=== PATIENT | male | born 1975 | race Caucasian/White ===

== ENCOUNTER 2018-05-04 00:07 | Emergency (ER) | payer SELFPAY ==
--- OUTSIDE RECORDS SUMMARY | 2018-05-04 00:10 | XMS REPORT ---
:1975 [facility] [address] [place] [address] [address] Care Team Providers Name Role Phone Unavailable Unavailable Unavailable Problems This patient has no known problems. Allergies, Adverse Reactions, Alerts This patient has no known allergies or adverse reactions. Medications This patient has no known medications. Encounters Start End Encounter Admission Attending Care Care Encounter Date/Time Date/Time Type Type Clinicians Facility Department ID 2018-01-27 2018-01-27 Outpatient [facility] [id number] 00:00:00 00:00:00 2017-08-12 2017-08-12 Outpatient [facility] [id number] 00:00:00 00:00:00
--- OUTSIDE RECORDS SUMMARY | 2018-05-04 00:10 | XMS REPORT | Clinical Summary ---
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 [facility] DEPARTMENT OF PATHOLOGY AND GENOMIC MEDICINE Creatinine 0.8 0.7 - 1.2 mg/dL [facility] DEPARTMENT OF PATHOLOGY AND GENOMIC MEDICINE Glucose 108 (H) 65 - 99 mg/dL [facility] DEPARTMENT OF PATHOLOGY AND GENOMIC MEDICINE Calcium 8.8 8.3 - 10.2 mg/dL [facility] DEPARTMENT OF PATHOLOGY AND GENOMIC [facility] Specimen Plasma specimen Performing Organization Address City/[facility]/Zipcode Phone Number [facility] DEPARTMENT OF PATHOLOGY AND [id number] [place] [address] [place] [address] [facility] Lactic acid level (07/09/2017 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 For more information, please contact:Ze [id number] [place] [address]
[2018-05-04 01:15] LABS: Absolute Lymphocytes (CBC) 2.2 K/uL (0.7-4.9); Absolute Monocytes 0.6 K/uL (0.1-1.3); Absolute Neutrophil 3.6 K/uL (1.8-8.0); Eosinophils % 5.9 % (0-4.4); Hematocrit 38.3 % (39.6-49.0); Lymphocytes % 31.6 % (15.3-44.8); MPV 8.6 fL (7.6-11.3); Monocytes % 9.3 % (3.3-12.3); RBC Red Blood Cell Count 4.73 M/uL (4.33-5.43)
[2018-05-04 01:28] LABS: BUN Blood Urea Nitrogen 18 mg/dL (7-18); Bicarbonate 28 mmol/L (21-32); Glucose Level 134 mg/dL (74-106); Potassium 3.6 mmol/L (3.5-5.1); Sodium Level 142 mmol/L (136-145)
--- NOTE | 2018-05-04 04:23 | ER ---
Nurse's Notes [facility] Name: Greer Field Age: 42 yrs Sex: Male : 1975 Arrival Date: 05/04/2018 Time: 00:09 Bed 13 Private MD: Diagnosis: Umbilical hernia Presentation: 05/04 00:20 Presenting complaint: Patient states: umbilical pain, swelling and redness since cc3 yesterday afternoon secondary to fall from an 8 feet ladder then hit his umbilical area to a hard object; patient has history of umbilical hernia as well. Transition of care: patient was not received from another setting of care. Onset of symptoms was May 03, 2018. Risk Assessment: Do you want to hurt yourself or someone else? Patient reports no desire to harm self or others. Initial Sepsis Screen: Does the patient meet any 2 criteria? No. Patient's initial sepsis screen is negative. Does the patient have a suspected source of infection? No. Patient's initial sepsis screen is negative. Care prior to arrival: None. 00:20 Method Of Arrival: Wheelchair cc3 00:20 Acuity: IVÁN 3 cc3 Triage Assessment: 00:20 General: Appears in no apparent distress. uncomfortable, Behavior is calm, cooperative, cc3 appropriate for age. Pain: Complains of pain in umbilicus Pain currently is 7 out of 10 on a pain scale. Quality of pain is described as aching. EENT: No signs and/or symptoms were reported regarding the EENT system. Neuro: Level of Consciousness is awake, alert, obeys commands, Oriented to person, place, time, situation, Appropriate for age. Cardiovascular: Denies chest pain. Respiratory: Airway is patent Respiratory effort is even, unlabored, Respiratory pattern is regular, symmetrical. GI: umbilical hernia area redness. : No signs and/or symptoms were reported regarding the genitourinary system. Derm: redness and swelling on the umbilical hernia area. Musculoskeletal: Circulation, motion, and sensation intact. Range of motion: limited in bilateral lower extremities. Historical: - Allergies: 00:20 No Known Allergies; cc3 - Home Meds: 00:20 None [Active]; cc3 - PMHx: 00:20 CHF; Hypertension; LYMPH EDEMA; tinnitis; Umbilical hernia; lymphedema; cc3 - PSHx: 00:20 left knee replacement; cc3 - Immunization history:: Adult Immunizations not up to date. - Social history:: Smoking status: Patient/guardian denies using tobacco, the patient reports quitting approximately 4 years ago. - Ebola Screening: : No symptoms or risks identified at this time. Screenin:20 Abuse screen: Denies threats or abuse. Denies injuries from another. Nutritional cc3 screening: No deficits noted. Tuberculosis screening: No symptoms or risk factors identified. Fall Risk Ambulatory Aid- None/Bed Rest/Nurse Assist (0 pts). Gait- Normal/Bed Rest/Wheelchair (0 pts) Mental Status- Oriented to own ability (0 pts). Assessment: 00:20 General: see triage assessment. cc3 01:13 Reassessment: Patient appears in no apparent distress at this time. Patient and/or cc3 family updated on plan of care and expected duration. Pain level reassessed. Patient is alert, oriented x 3, equal unlabored respirations, skin warm/dry/pink. Patient comfortably sleeping, kept undisturbed. 02:15 Reassessment: Patient appears in no apparent distress at this time. Patient and/or cc3 family updated on plan of care and expected duration. Pain level reassessed. Patient is alert, oriented x 3, equal unlabored respirations, skin warm/dry/pink. 03:42 Reassessment: Patient appears in no apparent distress at this time. Patient and/or cc3 family updated on plan of care and expected duration. Pain level reassessed. Patient is alert, oriented x 3, equal unlabored respirations, skin warm/dry/pink. 04:12 Reassessment: Patient appears in no apparent distress at this time. Patient and/or cc3 family updated on plan of care and expected duration. Pain level reassessed. Patient is alert, oriented x 3, equal unlabored respirations, skin warm/dry/pink. 04:30 Reassessment: Dr. Rosenthal ordered patient for discharge home but patient and his cc3 girlfriend are not anymore in the patient's room. automotive refinish technicianluli Mueller and supervisor personnel clerks in the registration named Hyun said they saw the patient left. Called the provided mobile number of the patient's girlfriend named Karly Phillips ([phone]) and she confirmed that they left without informing and got home already and that the patient removed his IV cannula when they got home, charge nurse Mely informed. Vital Signs: 00:20 BP 165 / 92; Pulse 96; Resp 20 S; Temp 98.9(O); Pulse Ox 99% on R/A; Weight 147.42 kg cc3 (R); Height 5 ft. 11 in. (180.34 cm) (R); Pain 7/10; 01:14 BP 159 / 86; Pulse 92; Resp 18 S; Pulse Ox 98% on R/A; cc3 02:14 BP 187 / 81; Pulse 89; Resp 18 S; Pulse Ox 100% on R/A; cc3 03:42 BP 167 / 94; Pulse 97; Resp 19 S; Pulse Ox 97% on R/A; cc3 04:00 BP 146 / 97; Pulse 96; Resp 18 S; Pulse Ox 97% on R/A; cc3 00:20 Body Mass Index 45.33 (147.42 kg, 180.34 cm) cc3 ED Course: 00:09 Patient arrived in ED. am2 00:13 Lo Prince is Primary Nurse. cc3 00:20 Arm band placed on right wrist. cc3 00:20 Patient has correct armband on for positive identification. Bed in low position. Call cc3 light in reach. front desk monitor on. Pulse ox on. NIBP on. 00:25 Eusebio Rosenthal MD is Attending Physician. gs 00:39 Triage completed. cc3 01:04 Initial lab(s) drawn, by nh, sent to lab. gm 01:07 Inserted saline lock: 20 gauge in right antecubital area, using aseptic technique. Blood collected. 02:08 CT Abd/Pelvis - W/Contrast In Process Unspecified. EDMS 02:[address] via stretcher. kw1 02:46 CT Abd/Pelvis - W/Contrast In Process Unspecified. EDMS 02:48 CT completed. Couldn't keep patient awake during exam. Patient moved back from CT. kw1 04:22 Kevin Grewal MD is Referral Physician. gs 04:30 No provider procedures requiring assistance completed. IV discontinued. cc3 Administered Medications: No medications were administered Outcome: 04:23 Discharge ordered by . gs 04:30 Discharged to home ambulatory, with family, patient left without signing discharge cc3 papers 04:30 Condition: stable 04:30 Discharge instructions given to patient, family, Instructed on discharge instructions, follow up and referral plans. Demonstrated understanding of instructions, follow-up care. 04:56 Patient left the ED. cc3 Signatures: Dispatcher [employer] EDMS Hyun Vinson am2 Eusebio Rosenthal MD MD Genny Garrison Lo Prince cc3 Malena Hughes gm Corrections: (The following items were deleted from the chart) 06:03 04:30 Reassessment: Dr. Rosenthal ordered patient for discharge home but patient and his cc3 girlfriend are not anymore in the patient's room. automotive refinish technician Myromero and supervisor personnel clerks in the registration named Hyun said they saw the patient left. Called the provided mobile number of the patient's girlfriend named Karly Phillips and she confirmed that they left and got home already and that the patient removed his IV cannula when they got home, charge nurse Mely informed. cc3
--- NOTE | 2018-05-04 04:23 | EDPHYS ---
Physician Documentation [facility] Name: Greer Field Age: 42 yrs Sex: Male : 1975 Arrival Date: 05/04/2018 Time: 00:09 Bed 13 Private MD: ED Physician Eusebio Rosenthal HPI: 05/04 04:31 This 42 yrs old Male presents to ER via Wheelchair with complaints of hernia gs problem. 04:31 The patient presents with abdominal pain in the lower abdomen. Onset: The gs symptoms/episode began/occurred yesterday. Associated signs and symptoms: Pertinent positives: nausea, Pertinent negatives: chest pain, diarrhea. The symptoms are described as crampy. Modifying factors: The symptoms are alleviated by nothing, the symptoms are aggravated by nothing. Severity of pain: At its worst the pain was moderate in the emergency department the pain is unchanged. The patient has experienced similar episodes in the past, chronically. fell on metal cart hit abdomen and where hernia is. Historical: - Allergies: 00:20 No Known Allergies; cc3 - Home Meds: 00:20 None [Active]; cc3 - PMHx: 00:20 CHF; Hypertension; LYMPH EDEMA; tinnitis; Umbilical hernia; lymphedema; cc3 - PSHx: 00:20 left knee replacement; cc3 - Immunization history:: Adult Immunizations not up to date. - Social history:: Smoking status: Patient/guardian denies using tobacco, the patient reports quitting approximately 4 years ago. - Ebola Screening: : No symptoms or risks identified at this time. ROS: 04:31 All other systems are negative. gs Exam: 04:31 Head/Face: Normocephalic, atraumatic. Eyes: Pupils equal round and reactive to light, gs extra-ocular motions intact. Lids and lashes normal. Conjunctiva and sclera are non-icteric and not injected. Cornea within normal limits. Periorbital areas with no swelling, redness, or edema. ENT: Nares patent. No nasal discharge, no septal abnormalities noted. Tympanic membranes are normal and external auditory canals are clear. Oropharynx with no redness, swelling, or masses, exudates, or evidence of obstruction, uvula midline. Mucous membranes moist. Neck: Trachea midline, no thyromegaly or masses palpated, and no cervical lymphadenopathy. Supple, full range of motion without nuchal rigidity, or vertebral point tenderness. No Meningismus. Chest/axilla: Normal chest wall appearance and motion. Nontender with no deformity. No lesions are appreciated. Cardiovascular: Regular rate and rhythm with a normal S1 and S2. No gallops, murmurs, or rubs. Normal PMI, no JVD. No pulse deficits. Respiratory: Lungs have equal breath sounds bilaterally, clear to auscultation and percussion. No rales, rhonchi or wheezes noted. No increased work of breathing, no retractions or nasal flaring. Back: No spinal tenderness. No costovertebral tenderness. Full range of motion. Skin: Warm, dry with normal turgor. Normal color with no rashes, no lesions, and no evidence of cellulitis. MS/ Extremity: Pulses equal, no cyanosis. Neurovascular intact. Full, normal range of motion. Neuro: Awake and alert, GCS 15, oriented to person, place, time, and situation. Cranial nerves II-XII grossly intact. Motor strength 5/5 in all extremities. Sensory grossly intact. Cerebellar exam normal. Normal gait. 04:31 Constitutional: The patient appears alert, awake. 04:31 Abdomen/GI: Inspection: obese Bowel sounds: normal, Palpation: nontender, Hernia: noted in the umbilical area, incarceration, that is moderate, able to reduce without difficulty. Vital Signs: 00:20 BP 165 / 92; Pulse 96; Resp 20 S; Temp 98.9(O); Pulse Ox 99% on R/A; Weight 147.42 kg cc3 (R); Height 5 ft. 11 in. (180.34 cm) (R); Pain 7/10; 01:14 BP 159 / 86; Pulse 92; Resp 18 S; Pulse Ox 98% on R/A; cc3 02:14 BP 187 / 81; Pulse 89; Resp 18 S; Pulse Ox 100% on R/A; cc3 03:42 BP 167 / 94; Pulse 97; Resp 19 S; Pulse Ox 97% on R/A; cc3 04:00 BP 146 / 97; Pulse 96; Resp 18 S; Pulse Ox 97% on R/A; cc3 00:20 Body Mass Index 45.33 (147.42 kg, 180.34 cm) cc3 MDM: 00:40 Patient medically screened. gs 04:31 Differential diagnosis: bowel obstruction, contusion, incarcerated hernia. Data gs reviewed: vital signs, nurses notes. Response to treatment: the patient's symptoms have markedly improved after treatment. ED course: pt markedly better pain resolved, didn't want to wait for ct report want to be called at home. 05/04 00:50 Order name: CBC with Diff gs 05/04 00:50 Order name: Basic Metabolic Panel; Complete Time: 04:22 gs 05/04 00:50 Order name: CT Abd/Pelvis - W/Contrast gs 05/04 00:50 Order name: CBC with Automated Diff; Complete Time: 04:22 EDMS 05/04 02:15 Order name: CT Abd/Pelvis - W/Contrast mw2 Administered Medications: No medications were administered Disposition: 05/04/18 04:23 Discharged to Home. Impression: Umbilical hernia. - Condition is Stable. - Discharge Instructions: Hernia, Adult, [id number]. - Medication Reconciliation Form, Thank You Letter, Antibiotic Education, Prescription Opioid Use form. - Follow up: Kevin Grewal MD; When: 2 - 3 days; Reason: Re-evaluation by your physician. Signatures: Dispatcher [employer] EDCT Eusebio Rosenthal MD MD Lo Prince cc3 Corrections: (The following items were deleted from the chart) 04:56 04:23 05/04/2018 04:23 Discharged to Home. Impression: Umbilical hernia. Condition is cc3 Stable. Forms are Medication Reconciliation Form, Thank You Letter, Antibiotic Education, Prescription Opioid Use. Follow up: Kevin Grewal; When: 2 - 3 days; Reason: Re-evaluation by your physician.
[2018-05-04 05:02] VITALS: TEMP 98.9
[2018-05-04 05:06] VITALS: BP 167/94; O2SAT 97
--- NOTE | 2018-05-04 08:47 | RAD REPORT ---
EXAM DESCRIPTION: CT - Abdomen Pelvis W Contrast - 05/04/2018 7:30 am CLINICAL HISTORY: Abdominal pain, umbilical pain, recent fall A preliminary report was provided at the time of the study and reviewed prior to final report. COMPARISON: CT imaging April 2016 TECHNIQUE: Biphasic, helical CT imaging of the abdomen and pelvis was performed following 100 ml non -ionic IV contrast. Oral contrast was given. All CT scans are performed using dose optimization technique as appropriate and may include automated exposure control or mA/KV adjustment according to patient size. FINDINGS: Chronic atelectasis present abutting the right hemidiaphragm. No pericardial thickening or effusion. The liver, spleen, and pancreas show no suspicious findings. Liver attenuation is borderline to mildl y fatty infiltrated. Gallbladder is contracted. No biliary tree dilatation. Symmetric renal function is seen with no hydronephrosis or suspicious renal mass. No pyelonephritis o r acute parenchymal process. No bladder abnormalities. No adrenal abnormalities. No dilated bowel loops or bowel wall thickening. No appendicitis findings. No free air, free fluid or inflammatory stranding. No mass or bulky lymphadenopathy. No omental thickening. Patient has a 10 c entimeter diameter fat only hernia at the umbilical level. Neck is 3 cm. This has enlarged since 2016 . No bowel involvement. Small bilateral fat filled inguinal hernia is present. Disc and bony degenerative change present. No acute bone finding. IMPRESSION: No obstruction, free air or surgically emergent finding. Borderline to mild fatty infiltration of the liver. Large 10 centimeter fat only hernia at the umbilicus. Neck is 3 cm. Hernia has enlarged since 2016 co mparison.
== END 2018-05-04 04:56 | disposition home or self-care (01) ==
LOC: ER 00:07
DX: K42.9 Umbilical hernia without obstruction or gangrene (principal); I10 Essential (primary) hypertension
CPT/HCPCS: 36415; 74177; 80048; 85025; 99285; Q9967